=== PATIENT | male | born 1955 | race Caucasian/White ===

== ENCOUNTER 2017-07-27 07:55 | Emergency (ER) | payer BC ==
[2017-07-27] MEDS: Nitroglycerin 0.4 MG Tab.SL SL PRN (08:13)
[2017-07-27] MEDS ORDERED: Sodium Chloride 0.9% 1,000 ML IV SCH (08:15)
[2017-07-27] MEDS ORDERED: Heparin Sodium 5,000 UNITS/0.5 ML Syringe IVPUSH ONE (08:17)
[2017-07-27] MEDS ORDERED: Heparin Sodium/D5W 25,000 UNITS/500 ML BAG IV SCH ×2 (08:25)
--- NOTE | 2017-07-27 08:25 | EDM.PDOC ---
ED HPI GENERAL MEDICAL PROBLEM - General Chief Complaint: Chest Pain Stated Complaint: chest pain Time Seen by Provider: 07/27/17 08:10 Source of Information: Reports: Patient, RN History Limitations: Reports: No Limitations - History of Present Illness INITIAL COMMENTS - FREE TEXT/NARRATIVE: 62 yr male presents with chest pain since about 2 am today. States he had some pain in his arms yesterday while driving about 5 hour to [place] to go fishing. History of atrial fibrillation and cardio version X 2 and borderline diabetes. Last ate about 6pm last night. States BM this am. Took BP medications this am, but unsure what it was. By observation of pills, possible Metoprolol 100 mg daily. ASA 325mg given and nitro X 2 while in ER. Heparin bolus 4000 and IV drip of 12/hr started. Discussed with Dr Grover and transfer STEMI to [facility]. Plavix 300 mg PO given. [facility] will cone picker pt to transport. Pt states pain is relieved after nitro X2 doses. Onset: Today Onset Date: 07/27/17 Onset Time: 02:00 Duration: Constant Location: Reports: Chest Treatments SPORTS DOCTOR: Reports: Aspirin ED ROS GENERAL - Review of Systems Review Of Systems: See Below Constitutional: Reports: No Symptoms HEENT: Reports: No Symptoms Cardiovascular: Reports: Chest Pain, Dyspnea on Exertion, Lightheadedness GI/Abdominal: Reports: No Symptoms : Reports: No Symptoms Musculoskeletal: Reports: Arm Pain Skin: Reports: No Symptoms Psychiatric: Reports: No Symptoms Hematologic/Lymphatic: Reports: No Symptoms ED EXAM, GENERAL - Physical Exam Exam: See Below Exam Limited By: No Limitations General Appearance: Alert, WD/WN, No Apparent Distress Nose: Normal Inspection, Normal Mucosa Throat/Mouth: Normal Inspection, Normal Lips, Normal Teeth Head: Atraumatic, Normocephalic Neck: Normal Inspection, Supple, Non-Tender Respiratory/Chest: No Respiratory Distress, Lungs Clear, Normal Breath Sounds Cardiovascular: Normal Peripheral Pulses, Regular Rate, Rhythm, No Edema Peripheral Pulses: 2+: Dorsalis Pedis (L), Dorsalis Pedis (R) GI/Abdominal: Normal Bowel Sounds, Soft, Non-Tender, Other (BM thi shannan) Back Exam: Normal Inspection, Full Range of Motion Extremities: Normal Inspection, Normal Range of Motion, Non-Tender Neurological: Alert, Oriented, Normal Cognition Psychiatric: Normal Affect Skin Exam: Warm, Dry, Intact Lymphatic: No Adenopathy Course - Vital Signs Last Recorded V/S: Last Vital Signs Temp Pulse Resp BP 205/118 H 07/27/17 08:13 Pulse Ox - Orders/Labs/Meds Orders: Active Orders 24 hr Category Date Time Status Cardiac Monitoring [RC] .As Directed Care 07/27/17 08:00 Active EKG Documentation Completion [RC] ASDIRECTED Care 07/27/17 08:57 Active Chest 1V Frontal [CR] Stat Exams 07/27/17 08:19 Ordered Heparin Sodium/D5W [Heparin 25,000 Units in D5W 500 ML] Med 07/27/17 08:25 Ordered 25,000 units in 500 ml IV TITRATE Nitroglycerin [Nitrostat] Med 07/27/17 08:15 Active 0.4 mg SL Q5M PRN EKG 12 Lead [EK] Routine Ther 07/27/17 08:10 Ordered Medication Orders Heparin Sodium/Dextrose (Heparin 25,000 Units In D5w 500 Ml) 25,000 units in 500 mls @ 0 mls/hr IV TITRATE YANICK; 12 UNITS/KG/HR PRN Reason: Protocol Nitroglycerin (Nitrostat) 0.4 mg SL Q5M PRN PRN Reason: Chest Pain Last Admin: 07/27/17 08:13 Dose: 0.4 mg Labs: Laboratory Tests 07/27/17 07/27/17 07/27/17 Range/Units 08:10 08:10 08:10 WBC 8.6 (4.0-11.0) K/uL RBC 5.51 (4.50-6.50) M/uL Hgb 16.5 (13.0-18.0) g/dL Hct 46.2 (40.0-54.0) % MCV 84 (76-96) fL MCH 29.9 (27.0-32.0) pg MCHC 35.7 H (31.0-35.0) g/dL RDW 12.6 (11.0-16.0) % Plt Count 149 L (150-400) K/uL MPV 9.7 (6.0-10.0) fL Neut % (Auto) 72.6 H (45.0-70.0) % Lymph % (Auto) 15.5 L (20.0-40.0) % Churchill % (Auto) 11.0 H (3.0-10.0) % Eos % (Auto) 0.6 L (1.0-5.0) % Baso % (Auto) 0.3 (0.0-0.5) % Neut # (Auto) 6.27 (2.00-7.50) K/uL Lymph # (Auto) 1.34 L (1.50-4.00) K/uL Churchill # (Auto) 0.95 H (0.20-0.80) K/uL Eos # (Auto) 0.05 (0.04-0.40) K/uL Baso # (Auto) 0.03 (0.02-0.10) K/uL PT 10.4 (9.0-11.5) sec INR 1.1 (1.0-3.5) APTT 24.0 L (27.0-35.0) SECONDS D-Dimer, Quantitative (0-400) ng/mL Sodium (136-145) mmol/L Potassium (3.5-5.1) mmol/L Chloride (98-107) mmol/L Carbon Dioxide (21.0-32.0) mmol/L Anion Gap (5.0-15.0) mmol/L BUN (8-26) mg/dL Creatinine (0.70-1.30) mg/dL Est Cr Clr Drug Dosing Estimated GFR (MDRD) (>60) MLS/MIN BUN/Creatinine Ratio (6-25) Glucose (74-100) mg/dL Calcium (8.5-10.1) mg/dL Total Bilirubin (0.0-1.0) mg/dL AST (15-37) U/L ALT (12-78) U/L Alkaline Phosphatase (46-116) U/L Troponin I 1.076 H* (0.000-0.060) ng/mL Total Protein (6.4-8.2) g/dL Albumin (3.4-5.0) g/dL Globulin (2.2-4.2) g/dL Albumin/Globulin Ratio (0.8-2.0) 07/27/17 07/27/17 Range/Units 08:10 08:10 WBC (4.0-11.0) K/uL RBC (4.50-6.50) M/uL Hgb (13.0-18.0) g/dL Hct (40.0-54.0) % MCV (76-96) fL MCH (27.0-32.0) pg MCHC (31.0-35.0) g/dL RDW (11.0-16.0) % Plt Count (150-400) K/uL MPV (6.0-10.0) fL Neut % (Auto) (45.0-70.0) % Lymph % (Auto) (20.0-40.0) % Churchill % (Auto) (3.0-10.0) % Eos % (Auto) (1.0-5.0) % Baso % (Auto) (0.0-0.5) % Neut # (Auto) (2.00-7.50) K/uL Lymph # (Auto) (1.50-4.00) K/uL Churchill # (Auto) (0.20-0.80) K/uL Eos # (Auto) (0.04-0.40) K/uL Baso # (Auto) (0.02-0.10) K/uL PT (9.0-11.5) sec INR (1.0-3.5) APTT (27.0-35.0) SECONDS D-Dimer, Quantitative 148 (0-400) ng/mL Sodium 134 L (136-145) mmol/L Potassium 4.2 (3.5-5.1) mmol/L Chloride 95 L (98-107) mmol/L Carbon Dioxide 29.8 (21.0-32.0) mmol/L Anion Gap 13.4 (5.0-15.0) mmol/L BUN 8 (8-26) mg/dL Creatinine 0.94 (0.70-1.30) mg/dL Est Cr Clr Drug Dosing TNP Estimated GFR (MDRD) > 60 (>60) MLS/MIN BUN/Creatinine Ratio 8.5 (6-25) Glucose 123 H (74-100) mg/dL Calcium 9.2 (8.5-10.1) mg/dL Total Bilirubin 0.9 (0.0-1.0) mg/dL AST 48 H (15-37) U/L ALT 65 (12-78) U/L Alkaline Phosphatase 74 (46-116) U/L Troponin I (0.000-0.060) ng/mL Total Protein 8.0 (6.4-8.2) g/dL Albumin 4.4 (3.4-5.0) g/dL Globulin 3.6 (2.2-4.2) g/dL Albumin/Globulin Ratio 1.2 (0.8-2.0) Meds: Medications Generic Name Dose Route Start Last Admin Trade Name Freq PRN Reason Stop Dose Admin Heparin Sodium/Dextrose 25,000 units in 500 mls @ 0 mls/hr 07/27/17 08:25 Heparin 25,000 Units In D5w 500 Ml IV TITRATE YANICK Protocol 12 UNITS/KG/HR Nitroglycerin 0.4 mg 07/27/17 08:15 07/27/17 08:13 Nitrostat SL 0.4 mg Q5M PRN Administration Chest Pain Discontinued Medications Generic Name Dose Route Start Last Admin Trade Name Freq PRN Reason Stop Dose Admin Clopidogrel Bisulfate 300 mg 07/27/17 08:40 07/27/17 08:40 Plavix PO 07/27/17 08:41 300 mg ONETIME ONE Administration Heparin Sodium (Porcine) 4,000 units 07/27/17 08:17 07/27/17 08:25 Heparin Sodium IVPUSH 07/27/17 08:18 4,000 units .BOLUS ONE Administration Metoprolol Tartrate Confirm 07/27/17 09:06 Lopressor Administered 07/27/17 09:07 Dose 5 mg .ROUTE .STK-MED ONE Tenecteplase 50 mg 07/27/17 08:45 Tnkase IV 07/27/17 08:46 ONETIME ONE Protocol - Re-Assessments/Exams Free Text/Narrative Re-Assessment/Exam: 07/27/17 09:07 Pt states no more pain to chest, but some heaviness to arms continues. Metoprolol 5 mg IV given for BP 155/99. TNkase given 0857. Departure - Departure Time of Disposition: 09:14 Disposition: DC/Tfer to Acute Hospital 02 Reason for Transfer *Q: Primary PCI Indicated Condition: Good Clinical Impression: STEMI (ST elevation myocardial infarction) Referrals: PCP,None [Primary Care Provider] - Forms: ED Department Discharge - Problem List & Annotations (1) STEMI (ST elevation myocardial infarction) SNOMED Code(s): 915923580 Code(s): I21.3 - ST ELEVATION (STEMI) MYOCARDIAL INFARCTION OF [facility] SITE Status: Acute Current Visit: Yes Onset Date: 07/27/17 - Problem List Review Problem List Initiated/Reviewed/Updated: Yes - My Orders Last 24 Hours: My Active Orders 07/27/17 08:00 Cardiac Monitoring [RC] .As Directed 07/27/17 08:10 EKG 12 Lead [EK] Routine 07/27/17 08:15 Nitroglycerin [Nitrostat] 0.4 mg SL Q5M PRN 07/27/17 08:19 Chest 1V Frontal [CR] Stat 07/27/17 08:25 Heparin Sodium/D5W [Heparin 25,000 Units in D5W 500 ML] 25,000 units in 500 ml IV TITRATE 07/27/17 08:57 EKG Documentation Completion [RC] ASDIRECTED - Assessment/Plan Last 24 Hours: My Active Orders 07/27/17 08:00 Cardiac Monitoring [RC] .As Directed 07/27/17 08:10 EKG 12 Lead [EK] Routine 07/27/17 08:15 Nitroglycerin [Nitrostat] 0.4 mg SL Q5M PRN 07/27/17 08:19 Chest 1V Frontal [CR] Stat 07/27/17 08:25 Heparin Sodium/D5W [Heparin 25,000 Units in D5W 500 ML] 25,000 units in 500 ml IV TITRATE 07/27/17 08:57 EKG Documentation Completion [RC] ASDIRECTED Plan: Transfer pt to [facility]. w STEMI.
[2017-07-27] MEDS ORDERED: Clopidogrel 75 MG Tab PO ONE (08:40)
[2017-07-27] MEDS ORDERED: Tenecteplase 50 MG Kit IV ONE (08:45)
[2017-07-27] MEDS ORDERED: Metoprolol Tartrate 5 MG/5 ML SDV ONE (09:06)
--- NOTE | 2017-07-28 09:57 | CR ---
DATE OF SERVICE: 07/27/17 CLINICAL DATA: Chest Pain Portable Chest: The heart size is normal. The aorta is calcified and ectatic. The left costophrenic angle is cut off. There is a masslike density within the right upper lung. It may be just confluence of densities, however I cannot exclude a true mass. Chest CT is recommended. The lungs are otherwise clear. No pneumothorax. No pleural effusions. Impression: Abnormal exam. See above. Chest CT is recommended. Thank you for allowing us to participate in the care of your patient. APOLINAR
== END 2017-07-27 09:45 ==
LOC: LB.ED 07:55
DX: I21.3 ST elevation (STEMI) myocardial infarction of unspecified site (principal); I48.91 Unspecified atrial fibrillation
CPT/HCPCS: 36415; 71010; 80053; 84484; 85025; 85379; 85610; 85730; 93005; 96361; 96374; 96375; 99285-25; A0425; A0429; A9270-GY; J1644; J1644-GY; J3101; J3490; J7040